=== PATIENT | male | born 1955 | race Caucasian/White ===

== ENCOUNTER 2017-03-29 11:10 | Emergency (ER) | payer BC, OTHER ==
[2017-03-29 11:57] VITALS: BP 117/76
--- NOTE | 2017-03-29 12:18 | UC ---
Respiratory Complaint HPI - HPI Summary HPI Summary: Congestion and cough for 9 days. No fever or chest pain. No facial pain. He denies lung disease. - History of Current Complaint Chief Complaint: UCGeneralIllness Stated Complaint: FLU LIKE SYMP Time Seen by Provider: 03/29/17 11:53 Hx Obtained From: Patient Onset/Duration: Gradual Onset, Lasting Weeks Timing: Constant Severity Initially: Moderate Severity Currently: Moderate Pain Intensity: 0 Character: Cough: Productive Aggravating Factors: Deep Breaths, Recumbent Position Alleviating Factors: Nothing Associated Signs And Symptoms: Positive: URI, Nasal Congestion. Negative: Dyspnea, Fever, Hemoptysis, Calf Pain, Calf Swelling - Allergies/Home Medications Allergies/Adverse Reactions: Allergies Allergy/AdvReac Type Severity Reaction Status Date / Time No Known Allergies Allergy Verified 03/29/17 11:57 Home Medications: Home Medications Blood Pressure Pill 03/29/17 [History] Rosuvastatin Calcium [Crestor] 03/29/17 [History] PMH/Surg Hx/FS Hx/Imm Hx Previously Healthy: No - Surgical History Surgical History: Yes - Family History Known Family History: Positive: Other - no related family history. - Social History Alcohol Use: Daily Substance Use Type: Marijuana Smoking Status (MU): Light Every Day Tobacco Smoker Review of Systems ENT: Sinus Congestion Respiratory: Cough All Other Systems Reviewed And Are Negative: Yes Physical Exam Triage Information Reviewed: Yes Appearance: Well-Appearing, No Pain Distress, Well-Nourished Vital Signs: Initial Vital Signs Temp 98.4 F 03/29/17 11:51 Pulse 63 03/29/17 11:51 Resp 20 03/29/17 11:51 BP 117/76 03/29/17 11:51 Pulse Ox 97 03/29/17 11:51 Vital Signs Reviewed: Yes ENT: Positive: Normal ENT inspection, Pharynx normal, Nasal congestion, TM bulging, Uvula midline. Negative: Pharyngeal erythema, Nasal drainage, TM dull , TM red, Tonsillar swelling, Tonsillar exudate, Trismus, Muffled voice, Hoarse voice, Sinus tenderness Neck: Positive: Supple, Nontender, No Lymphadenopathy Respiratory: Positive: Lungs clear, Normal breath sounds, No respiratory distress, No accessory muscle use. Negative: Respiratory distress, Decreased breath sounds, Accessory muscle use, Crackles, Rhonchi, Stridor, Wheezing Cardiovascular: Positive: No Murmur, Pulses Normal, Brisk Capillary Refill Abdomen Description: Positive: No Organomegaly, Soft. Negative: Distended, Guarding Musculoskeletal: Positive: Strength Intact, ROM Intact, No Edema Neurological: Positive: Alert, Muscle Tone Normal. Negative: Fatigued Psychological: Positive: Age Appropriate Behavior Skin: Negative: rashes UC Diagnostic Evaluation - Laboratory O2 Sat by Pulse Oximetry: 97 Respiratory Course/Dx - Differential Dx/Diagnosis Provider Diagnoses: URI. early sinusitis. Discharge - Discharge Plan Condition: Good Disposition: HOME Prescriptions: Azithromycin TAB* [Zithromax TAB (Z-ANTIONE) 250 mg #6 tabs] 2 tab PO .TODAY, THEN 1 DAILY #1 antione Benzonatate CAP* [Tessalon 100 MG CAP*] 100 mg PO TID #20 cap Patient Education Materials: Upper Respiratory Infection (ED) Referrals: Joe Sim MD [Primary Care Provider] - Additional Instructions: Decongestants like mucinex. Prescriptions. Netti pot or nasal irrigation.
== END 2017-03-29 12:19 | disposition home or self-care (01) ==
LOC: UCCORT 11:10
DX: J06.9 Acute upper respiratory infection, unspecified (principal); J32.9 Chronic sinusitis, unspecified; F12.90 Cannabis use, unspecified, uncomplicated; F17.210 Nicotine dependence, cigarettes, uncomplicated
CPT/HCPCS: 99212; G0463

== ENCOUNTER 2018-09-07 16:14 | Emergency (ER) | payer OTHER ==
[2018-09-07] MEDS ORDERED: NS 0.9% 1000 ML** 1,000 ML IV ONE (16:24)
[2018-09-07 16:27] VITALS: BP 154/70
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
== END 2018-09-07 16:55 | disposition short-term general hospital (02) ==
LOC: UCCORT 16:14
DX: S09.90XA Unspecified injury of head, initial encounter (principal); S01.01XA Laceration without foreign body of scalp, initial encounter; S99.911A Unspecified injury of right ankle, initial encounter; S99.921A Unspecified injury of right foot, initial encounter; V86.59XA Driver of other special all-terrain or other off-road motor vehicle injured in nontraffic accident, initial encounter; Y92.9 Unspecified place or not applicable; Z87.891 Personal history of nicotine dependence
CPT/HCPCS: 99213; G0463